=== PATIENT | male | born 1985 | race Native Hawaiian/Other Pacific Islander ===

== ENCOUNTER 2021-02-17 08:46 | Observation (INO) | payer SELFPAY ==
[2021-02-17 09:15] LABS: Bilirubin,Urine NEG (Negative); Blood,Urine NEG (Negative); Color,Urine Yellow (Yellow); Mucus,Urine FEW /HPF; RBC,Urine < 1.0 /HPF (0.0-6.0); Urobilinogen,Urine < 2.0 mg/dL (<2.0); WBC,Urine < 1.0 /HPF (0.0-6.0)
[2021-02-17 09:17] LABS: Basophils # (Auto) 0.1 K/mm3 (0.0-0.1); Basophils % (Auto) 0.4 % (0.0-1.8); Hematocrit 40.1 % (35.5-45.6); Hemoglobin 14.2 gm/dl (11.8-15.2); Lymphocytes # (Auto) 0.8 K/mm3 (1.2-5.4); Lymphocytes % (Auto) 4.4 % (13.4-35.0); Mean Corpuscular HGB Conc 35 % (32-34); Mean Corpuscular Volume 86 fl (84-94); Monocytes % (Auto) 5.7 % (0.0-7.3); Platelet Count 257 K/mm3 (140-440); Red Blood Count 4.65 M/mm3 (3.65-5.03); Red Cell Distribution Width 12.5 % (13.2-15.2)
[2021-02-17 09:40] LABS: Alanine Aminotransferase 16 units/L (7-56); Albumin 4.7 g/dL (3.9-5); BUN/Creatinine Ratio 19; Blood Urea Nitrogen 15 mg/dL (9-20); Calcium 9.1 mg/dL (8.4-10.2); Hemolysis Index 13
[2021-02-17] MEDS ORDERED: ONDANSETRON 4 MG/2 ML INJ IV ONE (11:15)
[2021-02-17] MEDS ORDERED: SODIUM CHLORIDE 0.9% 1000 ML 1,000 ML IV ONE (11:15)
[2021-02-17] MEDS ORDERED: MORPHINE 2 MG/1 ML INJ IV ONE (11:15)
[2021-02-17] MEDS ORDERED: PIPERACIL/TAZOBACTA 4.5/NS 100 4.5 GM/100 ML VIAL IV ONE (11:16)
--- NOTE | 2021-02-17 11:31 | Emergency Department Report ---
ED Abdominal Pain HPI - General Chief Complaint: Abdominal Pain Stated Complaint: ABD PAIN PUI?: No Time Seen by Provider: 02/17/21 10:49 Source: patient Mode of arrival: Ambulatory Limitations: Language Barrier - History of Present Illness Initial Comments: This is a 35-year-old male with no prior medical problem not taking any regular medications presenting with abdominal pain since last night. History obtained in Kazakh. The pain began gradually in the upper quadrants of the abdomen/periumbilical area bilaterally. It migrated to the right lower quadrant which is the point of maximum intensity now. Patient stated that he vomited yellow material x1. He states that he did not experience a fever. He denies any prior surgical procedures or hospitalizations. MD Complaint: abdominal pain -: Gradual, hour(s) Location: periumbilical, LUQ, RUQ Radiation: none Migration to: RLQ Severity: moderate Quality: aching Consistency: constant Improves With: nothing Worsens With: movement Associated Symptoms: denies other symptoms, vomiting (X1). denies: diarrhea, fever, chills, dysuria - Related Data Allergies Allergy/AdvReac Type Severity Reaction Status Date / Time No Known Allergies Allergy Unverified 02/17/21 08:54 ED Review of Systems ROS: Stated complaint: ABD PAIN Other details as noted in HPI Constitutional: denies: chills, fever Eyes: denies: eye pain, eye discharge, vision change ENT: denies: ear pain, throat pain Respiratory: denies: cough, shortness of breath, wheezing Cardiovascular: denies: chest pain, palpitations Endocrine: no symptoms reported Gastrointestinal: as per HPI, abdominal pain, nausea, vomiting. denies: diarrhea Genitourinary: denies: urgency, dysuria Musculoskeletal: denies: back pain, joint swelling, arthralgia Skin: denies: rash, lesions Neurological: denies: headache, weakness, paresthesias Psychiatric: denies: anxiety, depression Hematological/Lymphatic: denies: easy bleeding, easy bruising ED Past Medical Hx - Past Medical History Previous Medical History?: No - Surgical History Past Surgical History?: No - Social History Smoking Status: Never Smoker Substance Use Type: None ED Physical Exam - General Limitations: No Limitations General appearance: alert, in no apparent distress - Head Head exam: Present: atraumatic, normocephalic - Eye Eye exam: Present: normal appearance. Absent: scleral icterus - ENT ENT exam: Present: mucous membranes moist - Neck Neck exam: Present: normal inspection. Absent: tenderness, meningismus - Respiratory Respiratory exam: Present: normal lung sounds bilaterally. Absent: respiratory distress - Cardiovascular Cardiovascular Exam: Present: regular rate, normal rhythm. Absent: systolic murmur, diastolic murmur, rubs, gallop - GI/Abdominal GI/Abdominal exam: Present: soft, distended, tenderness (Mildly right lower quadrant), guarding (Voluntary), rebound (Localized right lower quadrant), diminished bowel sounds - Rectal Rectal exam: Present: deferred - Extremities Exam Extremities exam: Present: normal inspection - Back Exam Back exam: Present: normal inspection - Neurological Exam Neurological exam: Present: alert, oriented X3, CN II-XII intact. Absent: motor sensory deficit - Psychiatric Psychiatric exam: Present: normal affect, normal mood - Skin Skin exam: Present: warm, dry, intact, normal color. Absent: rash ED Course Vital Signs 02/17/21 02/17/21 08:55 12:08 Temperature 97.9 F Pulse Rate 97 H Respiratory 20 18 Rate Blood Pressure 128/70 O2 Sat by Pulse 98 Oximetry - Reevaluation(s) Reevaluation #1: Patient's presentation is quite consistent with acute appendicitis. He is treated with analgesia fluids and empiric antibiotics. CT of the abdomen has been ordered. Surgeon will be notified upon findings. 02/17/21 11:30 Reevaluation #2: Surgeon paged 02/17/21 13:40 Reevaluation #3: Spoke with . States admit to hospitalist. She will likely take the patient to the OR today. 02/17/21 13:50 02/17/21 13:50 Dr. Mosher paged ED Medical Decision Making - Lab Data Result diagrams: 02/17/21 09:08 02/17/21 09:08 Laboratory Results - last 24 hr 02/17/21 02/17/21 02/17/21 09:08 09:08 Unknown WBC 17.2 H RBC 4.65 Hgb 14.2 Hct 40.1 MCV 86 MCH 31 MCHC 35 H RDW 12.5 L Plt Count 257 Lymph % (Auto) 4.4 L [place] % (Auto) 5.7 Eos % (Auto) 0.0 Baso % (Auto) 0.4 Lymph # (Auto) 0.8 L [place] # (Auto) 1.0 H Eos # (Auto) 0.0 Baso # (Auto) 0.1 Seg Neutrophils % 89.5 H Seg Neutrophils # 15.4 H Sodium 137 Potassium 3.9 Chloride 102.7 Carbon Dioxide 23 Anion Gap 15 BUN 15 Creatinine 0.8 Estimated GFR > 60 BUN/Creatinine Ratio 19 Glucose 132 H Calcium 9.1 Total Bilirubin 0.80 AST 24 ALT 16 Alkaline Phosphatase 119 Total Protein 7.5 Albumin 4.7 Albumin/Globulin Ratio 1.7 Urine Color Yellow Urine Turbidity Clear Urine pH 9.0 H Ur Specific [place] 1.021 Urine Protein 30 mg/dl Urine Glucose (UA) Neg Urine Ketones 20 Urine Blood Neg Urine Nitrite Neg Urine Bilirubin Neg Urine Urobilinogen < 2.0 Ur Leukocyte Esterase Neg Urine WBC (Auto) < 1.0 Urine RBC (Auto) < 1.0 Urine Mucus Few - Radiology Data Radiology results: report reviewed, image reviewed PELVIS: The appendix is mildly dilated and thick-walled. The appendix measures approximately 1.2 cm transverse. There is a 1.3 cm calcified fecalith near the base of the appendix. There is mild inflammation in the periappendiceal fat. I see no evidence of abscess or obstruction. Critical care attestation.: If time is entered above; I have spent that time in minutes in the direct care of this critically ill patient, excluding procedure time. ED Disposition Clinical Impression: Acute appendicitis Qualifiers: Acute appendicitis type: with localized peritonitis Appendicitis gangrene presence: without gangrene Appendicitis perforation presence: without perforation Appendicitis abscess presence: unspecified whether abscess present Qualified Code(s): K35.30 - Acute appendicitis with localized peritonitis, without perforation or gangrene Disposition: OP ADMIT IP TO THIS HOSP Is pt being admited?: Yes Does the pt Need Aspirin: No Condition: Stable Referrals: PRIMARY CARE, [Primary Care Provider] - 3-5 Days Time of Disposition: 13:47
--- NOTE | 2021-02-17 13:27 | Cat Scan Report ---
CT OF THE ABDOMEN AND PELVIS WITH INTRAVENOUS CONTRAST INDICATION / CLINICAL INFORMATION: Abdominal pain, likely appendicitis. TECHNIQUE: The patient received 100 cc Omnipaque [address] scans at this location are performed using CT dose reduction for ALARA by means of automated exposure control. COMPARISON: None available. FINDINGS: ABDOMEN: The liver, spleen, gallbladder, bile ducts, pancreas, adrenal glands, kidneys and bowel demo nstrate no significant abnormality area no adenopathy is present. The lung bases are clear. PELVIS: The appendix is mildly dilated and thick-walled. The appendix measures approximately 1.2 cm t ransverse. There is a 1.3 cm calcified fecalith near the base of the appendix. There is mild inflamma tion in the periappendiceal fat. I see no evidence of abscess or obstruction. The distal ureters, urinary bladder, prostate gland and seminal vesicles are normal. There is no evid ence of diverticulitis. I do not identify a hernia. No acute osseous abnormality is present. IMPRESSION: Findings characteristic of acute appendicitis. There is an associated appendicolith witho ut evidence of abscess or other complication. Signer Name: Vinh Hatfield MD Signed: 02/17/2021 1:23 PM Workstation Name: [id number]
[2021-02-17] MEDS ORDERED: ALBUTEROL 2.5 MG/3 ML NEBU IH PRN (13:54)
[2021-02-17] MEDS ORDERED: ACETAMINOPHEN 325 MG TAB PO PRN (13:54)
[2021-02-17] MEDS ORDERED: ONDANSETRON 4 MG/2 ML INJ IV PRN (13:54)
--- NOTE | 2021-02-17 14:13 | History and Physical Report ---
History of Present Illness Chief complaint: My stomach hurts History of present illness: 35 YO Male with no PMH presents to ED for evaluation. Pt reports "my stomach hurts". Patient states that he has experienced pain in her abdomen over the past 1 day with persistently worsening symptoms over the same timeframe. Brown rodarte states that pain is 10/10, constant, diffuse, associated with nausea, associated with vomiting. Patient transported to [facility] via private vehicle for further care and evaluation of the aforementioned symptoms. The patient was seen and evaluated in the emergency department. All lab and imaging studies reviewed. Patient underwent CT scan of the abdomen and pelvis which revealed evidence of Appendicitis. Patient found to have systemic inflammatory response syndrome. Patient initiated on IV antibiotic therapy. Surgical team consulted in ED. Patient denies fever, chills, chest pain, palpitation, productive cough, skin rash, recent ill contacts, ingestion of food/water from new or different sources, brbpr, melena, or known exposure to COVID-19. No prior admission for review. All medication listed at time of admission has been reconciled. Past History Past Medical History: No medical history Past Surgical History: No surgical history, Other (reviewed) Social history: single Family history: diabetes, hypertension Medications and Allergies Allergies Allergy/AdvReac Type Severity Reaction Status Date / Time No Known Allergies Allergy Unverified 02/17/21 08:54 Active Meds: Active Medications Acetaminophen (Acetaminophen 325 Mg Tab) 650 mg PO Q4H PRN PRN Reason: Pain MILD(1-3)/Fever >100.5/EID Albuterol (Albuterol 2.5 Mg/3 Ml Nebu) 2.5 mg IH Q4HRT PRN PRN Reason: Shortness Of Breath Sodium Chloride (Nacl 0.9% 1000 Ml) 1,000 mls @ 125 mls/hr IV DIRECT CATHRYN Ondansetron HCl (Ondansetron 4 Mg/2 Ml Inj) 4 mg IV Q8H PRN PRN Reason: Nausea And Vomiting Sodium Chloride (Sodium Chloride 0.9% 10 Ml Flush Syringe) 10 ml IV BID CATHRYN Sodium Chloride (Sodium Chloride 0.9% 10 Ml Flush Syringe) 10 ml IV PRN PRN PRN Reason: LINE FLUSH Review of Systems Constitutional: no weight loss, no weight gain, no fever, no chills Ears, nose, mouth and throat: no ear pain, no ear discharge, no nasal congestion Cardiovascular: no chest pain, no orthopnea, no rapid/irregular heart beat, no edema Respiratory: no cough, no cough with sputum, no hemoptysis, no shortness of b reath Gastrointestinal: abdominal pain, nausea, vomiting, no diarrhea, no change in bowel habits, no hematemesis, no coffee ground emesis, no BRBPR, no melena, no hematochezia Rectal: no pain, no incontinence, no bleeding Musculoskeletal: no neck stiffness, no neck pain, no shooting arm pain, no arm numbness/tingling, no shooting leg pain Integumentary: no rash, no pruritis, no redness, no sores Neurological: no head injury, no transient paralysis, no parathesias, no num bness, no tingling, no syncope Psychiatric: no anxiety, no change in sleep habits, no insomnia, no hypersomnia, no change in appetite, no suicidal ideation Endocrine: no cold intolerance, no polyphagia, no excessive thirst, no polyuria, no excessive sweating, no flushing Hematologic/Lymphatic: no easy bruising, no easy bleeding, no lymphadenopathy Allergic/Immunologic: no allergic rhinitis Exam - Constitutional Vitals: Temp Pulse Resp BP Pulse Ox 97.9 F 97 H 18 128/70 98 02/17/21 08:55 02/17/21 08:55 02/17/21 12:08 02/17/21 08:55 02/17/21 08:55 General appearance: Present: mild distress - EENT Eyes: Present: PERRL ENT: hearing intact, clear oral mucosa - Neck Neck: Present: supple, normal ROM - Respiratory Respiratory effort: normal Respiratory: bilateral: CTA - Cardiovascular Heart Sounds: Present: S1 & S2. Absent: rub, click - Extremities Extremities: pulses symmetrical, No edema Peripheral Pulses: within normal limits - Abdominal General gastrointestinal: Present: soft, tender, non-distended, normal bowel sounds Localized gastrointestinal: tender: diffuse Male genitourinary: Present: normal - Integumentary Integumentary: Present: clear, warm, dry - Musculoskeletal Musculoskeletal: gait normal, strength equal bilaterally - Psychiatric Psychiatric: appropriate mood/affect, intact judgment & insight - Neurologic Neurologic: CNII-XII intact, moves all extremities Results - Labs CBC & Chem 7: 02/17/21 09:08 02/17/21 09:08 Labs: Abnormal lab results 02/17/21 02/17/21 02/17/21 Range/Units 09:08 09:08 Unknown WBC 17.2 H (4.5-11.0) K/mm3 MCHC 35 H (32-34) % RDW 12.5 L (13.2-15.2) % Lymph % (Auto) 4.4 L (13.4-35.0) % Lymph # (Auto) 0.8 L (1.2-5.4) K/mm3 [place] # (Auto) 1.0 H (0.0-0.8) K/mm3 Seg Neutrophils % 89.5 H (40.0-70.0) % Seg Neutrophils # 15.4 H (1.8-7.7) K/mm3 Glucose 132 H (75-100) mg/dL Urine pH 9.0 H (5.0-7.0) Assessment and Plan - Patient Problems (1) Acute appendicitis Current Visit: Yes Status: Acute Qualifiers: Acute appendicitis type: with localized peritonitis Appendicitis gangrene presence: without gangrene Appendicitis perforation presence: without perforation Appendicitis abscess presence: unspecified whether abscess present Qualified Code(s): K35.30 - Acute appendicitis with localized peritonitis, without perforation or gangrene Plan to address problem: CBC, CMP, CT scan abdomen and pelvis, IV antibiotic therapy, patient is pending surgical intervention, bowel rest, IV fluid resuscitation therapy, further care as per surgical team. (2) SIRS (systemic inflammatory response syndrome) Current Visit: Yes Status: Acute Plan to address problem: CBC, CMP, IV antibiotic therapy, IV fluid resuscitation therapy, supportive care. (3) DVT prophylaxis Current Visit: Yes Status: Acute Plan to address problem: SCD to bilateral lower extremities while in bed, patient is ambulatory
[2021-02-17] MEDS ORDERED: LIDOCAINE (1%) 10 MG/1 ML VIAL 20 ML MDV ONE (14:36)
[2021-02-17] MEDS ORDERED: BUPIVACAINE/PF (0.5%) 5 MG/1 ML 30 ML VIAL INFILTRATI ONE ×2 (14:36→16:02)
--- NOTE | 2021-02-17 15:13 | Consultation ---
History of Present Illness Consult date: 02/17/21 Reason for consult: abdominal pain Chief complaint: abdominal pain - History of present illness History of present illness: 35 yo M with no PMHx who presented to the emergency room with complaints of regulo re diffuse abdominal pain that started yesterday. He states the pain was all over and then migrated to the right lower quadrant today. The pain is stabbing in nature and has progressively gotten worse. He has never had pain like this before. The pain is now localized in the right lower quadrant and does not radiate. He states this was associated with nausea and vomiting. No fevers or chills. No sick contacts. Past History Past Medical History: No medical history Past Surgical History: No surgical history Social history: no significant social history Family history: no significant family history Medications and Allergies Allergies Allergy/AdvReac Type Severity Reaction Status Date / Time No Known Allergies Allergy Unverified 02/17/21 08:54 Active Meds: Active Medications Acetaminophen (Acetaminophen 325 Mg Tab) 650 mg PO Q4H PRN PRN Reason: Pain MILD(1-3)/Fever >100.5/EID Albuterol (Albuterol 2.5 Mg/3 Ml Nebu) 2.5 mg IH Q4HRT PRN PRN Reason: Shortness Of Breath Sodium Chloride (Nacl 0.9% 1000 Ml) 1,000 mls @ 125 mls/hr IV DIRECT CATHRYN Ondansetron HCl (Ondansetron 4 Mg/2 Ml Inj) 4 mg IV Q8H PRN PRN Reason: Nausea And Vomiting Sodium Chloride (Sodium Chloride 0.9% 10 Ml Flush Syringe) 10 ml IV BID CATHRYN Sodium Chloride (Sodium Chloride 0.9% 10 Ml Flush Syringe) 10 ml IV PRN PRN PRN Reason: LINE FLUSH Review of Systems All systems: negative (10 point ROS performed and negative except for that listed in HPI) Exam Vital Signs Temp Pulse Resp BP Pulse Ox 97.9 F 97 H 20 128/70 98 02/17/21 08:55 02/17/21 08:55 02/17/21 08:55 02/17/21 08:55 02/17/21 08:55 Narrative exam: Gen.: Awake, alert, oriented x3. No apparent distress ENT: Trachea midline. No lymphadenopathy. No scleral icterus or conjunctival pallor CV: S1, S2 present Respiratory: No audible wheezes Abdomen: Soft, nondistended, +TTP in RLQ. +rebound and guarding. No rigidity Extremities: No clubbing, cyanosis, edema Results - Labs 02/17/21 09:08 02/17/21 09:08 Abnormal lab results 02/17/21 02/17/21 02/17/21 Range/Units 09:08 09:08 Unknown WBC 17.2 H (4.5-11.0) K/mm3 MCHC 35 H (32-34) % RDW 12.5 L (13.2-15.2) % Lymph % (Auto) 4.4 L (13.4-35.0) % Lymph # (Auto) 0.8 L (1.2-5.4) K/mm3 [place] # (Auto) 1.0 H (0.0-0.8) K/mm3 Seg Neutrophils % 89.5 H (40.0-70.0) % Seg Neutrophils # 15.4 H (1.8-7.7) K/mm3 Glucose 132 H (75-100) mg/dL Urine pH 9.0 H (5.0-7.0) Diabetes panel 02/17/21 Range/Units 09:08 Sodium 137 (137-145) mmol/L Potassium 3.9 (3.6-5.0) mmol/L Chloride 102.7 (98-107) mmol/L Carbon Dioxide 23 (22-30) mmol/L BUN 15 (9-20) mg/dL Creatinine 0.8 (0.8-1.3) mg/dL Glucose 132 H (75-100) mg/dL Calcium 9.1 (8.4-10.2) mg/dL AST 24 (5-40) units/L ALT 16 (7-56) units/L Alkaline Phosphatase 119 (35-129) units/L Total Protein 7.5 (6.3-8.2) g/dL Albumin 4.7 (3.9-5) g/dL Calcium panel 02/17/21 Range/Units 09:08 Calcium 9.1 (8.4-10.2) mg/dL Albumin 4.7 (3.9-5) g/dL Pituitary panel 02/17/21 Range/Units 09:08 Sodium 137 (137-145) mmol/L Potassium 3.9 (3.6-5.0) mmol/L Chloride 102.7 (98-107) mmol/L Carbon Dioxide 23 (22-30) mmol/L BUN 15 (9-20) mg/dL Creatinine 0.8 (0.8-1.3) mg/dL Glucose 132 H (75-100) mg/dL Calcium 9.1 (8.4-10.2) mg/dL Adrenal panel 02/17/21 Range/Units 09:08 Sodium 137 (137-145) mmol/L Potassium 3.9 (3.6-5.0) mmol/L Chloride 102.7 (98-107) mmol/L Carbon Dioxide 23 (22-30) mmol/L BUN 15 (9-20) mg/dL Creatinine 0.8 (0.8-1.3) mg/dL Glucose 132 H (75-100) mg/dL Calcium 9.1 (8.4-10.2) mg/dL Total Bilirubin 0.80 (0.1-1.2) mg/dL AST 24 (5-40) units/L ALT 16 (7-56) units/L Alkaline Phosphatase 119 (35-129) units/L Total Protein 7.5 (6.3-8.2) g/dL Albumin 4.7 (3.9-5) g/dL - Imaging CT scan - abdomen: report reviewed, image reviewed CT scan - pelvis: report reviewed, image reviewed Assessment and Plan 35-year-old male with acute appendicitis Plan: 1. NPO 2. IVF 3. prn pain and nausea control 4. DVT ppx 5. Iv abx 6. Recommend OR for appendectomy. I discussed all risk benefits, alternatives to surgery with the patient questions were answered. Consent obtained. The entire encounter was performed using the [employer] interpreter. We will proceed to the OR today. Thank you for this consultation. Please call with any questions or concerns. Evaluation and treatment of this patient was during the time of the national and state emergency arising from COVID19 coronavirus pandemic. Treatment and procedures performed meet the current and available best practice and guidelines for patient during the COVID pandemic.
--- NOTE | 2021-02-17 15:20 | Anesthesia Consultation ---
Anesthesia Consult and Med Hx Date of service: 02/17/21 - Airway Anesthetic Teeth Evaluation: Crowns ROM Head & Neck: Adequate Mental/Hyoid Distance: Adequate Mallampati Class: Class II Intubation Access Assessment: Probably Good - Pulmonary Exam CTA: Yes - Pre-Operative Health Status ASA Pre-Surgery Classification: ASA1, Emergency Proposed Anesthetic Plan: General - Pulmonary Hx Smoking: No Hx Respiratory Symptoms: No Hx Pneumonia: No Hx Sleep Apnea: No - Cardiovascular System Hx Hypertension: No Hx Coronary Artery Disease: No - Central Nervous System Hx Neuromuscular Disorder: No Hx Seizures: No Hx Psychiatric Problems: No - Endocrine Hx Renal Disease: No Hx Liver Disease: No Hx Insulin Dependent Diabetes: No Hx Non-Insulin Dependent Diabetes: No Hx Thyroid Disease: No - Hematic Hx Anemia: No - Other Systems Hx Alcohol Use: No Hx Substance Use: No Hx Obesity: No
--- NOTE | 2021-02-17 15:21 | Anesthesia Day of Surgery ---
Anesthesia Day of Surgery - Day of Surgery Patient Examined: Yes Patient H&P Reviewed: Yes Patient is NPO: Yes Beta Blockers: No Cardiac Clearance: No Pulmonary Clearance: No Los's Test: N/A
[2021-02-17] MEDS ORDERED: LACTATED RINGERS 1,000 ML ONE ×2 (15:26→16:36)
[2021-02-17] MEDS ORDERED: LIDOCAINE MPF (2%) 20 MG/1 ML VIAL 5 ML ONE (15:32)
[2021-02-17] MEDS ORDERED: ONDANSETRON 4 MG/2 ML INJ ONE (15:32)
[2021-02-17] MEDS ORDERED: HYDROmorphone 1 MG/1 ML INJ ONE (15:32)
[2021-02-17] MEDS ORDERED: ROCURONIUM 50 MG/5 ML INJ IV ONE (15:32)
[2021-02-17] MEDS ORDERED: propofoL 200 MG/20 ML VIAL IV ONE (15:32)
[2021-02-17] MEDS ORDERED: LIDOCAINE (1%) 10 MG/1 ML VIAL 20 ML MDV INFILTRATI ONE (16:02)
[2021-02-17] MEDS ORDERED: WATER FOR IRRIG STERILE 1,500 ML BOTTLE IR ONE (16:03)
[2021-02-17] MEDS ORDERED: SUGAMMADEX SODIUM 200 MG/2 ML VIAL IV ONE (16:21)
--- NOTE | 2021-02-17 16:28 | Operative Report ---
Operative Report Operative Report: Date of operation: 02/17/21 Preoperative diagnosis: acute appendicitis Postoperative diagnosis: acute appendicitis Procedure performed: Laparoscopic appendectomy Surgeon: Steven Connolly DO Anesthesia: GETA Findings: Thickened, inflamed appendix without perforation EBL:<5cc Specimen: appendix Disposition/Condition: stable to PACU HPI and indication: 35yo F presented to ER with RLQ pain x24 hours. He was found to have an elevated WBC and acute appendicitis on CT scan. It was decided to take him to the OR for appendectomy. Using the [employer] attendant line, all risks, benefits, alternatives of surgery were discussed with the patient. All questions answered and consent signed. Procedure in detail: Patient was identified in the ER and taken back to the OR and placed on the OR table in supine position. After anesthesia was induced a peres catheter was steriley placed by the circulating nurse. A time out was performed. Local anesthetic was infilitrated into all skin incision sites. A supraumbilical incision was made and veress needle inserted. The positioning of the veress needle was confirmed using the saline drop test. The abdomen was then insufflated to 15mmHg without incident. The veress needle was withdrawn and a 5mm optiview trocar placed under direct visualization. The abdomen was inspected and there was no underlying injury to the abdominal structures identified. A 5mm suprapubic and a 12 mm LLQ trocar were placed under direct visualization. The appendix was visualized and noted to be inflamed and thickened. There was no evidence of perforation or free fluid. The base of the appendix was identified. The mesentery of the appendix was ligated using the harmonic scalpel. The base of the appendix was transected using an ethicon flex stapler 45mm white load. The appendix was placed into an endocatch bag and removed via the 12 mm port. This was passed off the table as specimen. The staple line and mesentery were then inspected and no bleeding visualized. The 12mm port fascia was closed with a single interrupted 0 vicryl stitch using the Sincere Pru[employer] device. The remaining ports were removed under direct visualization. All skin incisions were closed using 4-0 monocryl subcuticular stitches and skin glue. All skin incisions were once again infiltrated with l ocal anesthetic. At the end of the case, all sponge, instrument, sharp counts were correct x2. The patient was awoken from anesthesia, peres catheter removed, and taken to PACU in stable condition.
[2021-02-17] MEDS ORDERED: MORPHINE 2 MG/1 ML INJ IV PRN (16:32)
[2021-02-17] MEDS ORDERED: HYDROcodone/ACETAMINOPHEN 5-325 MG TAB PO PRN (16:32)
[2021-02-17] MEDS ORDERED: KETOROLAC 30 MG/1 ML INJ ONE (16:36)
--- NOTE | 2021-02-17 16:56 | Post Anesthesia Evaluation ---
- Post Anesthesia Evaluation Patient Participated: Yes Airway Patent: Yes Stable Respiratory Function: Yes Nausea/Vomiting: No Temp > 96.8F: Yes Pain Manageable: Yes Adequeate Hydration: Yes Anesthesia Complications: No Block Receding Appropriately: Not Applicable Patient on Ventilator: No
[2021-02-17] MEDS: SODIUM CHLORIDE 0.9% 1000 ML 1,000 ML IV SCH (17:10)
[2021-02-17] MEDS: PIPERACIL/TAZOBACTA 4.5/NS 100 4.5 GM/100 ML VIAL IV SCH (20:28)
[2021-02-18] MEDS: SODIUM CHLORIDE 0.9% 1000 ML 1,000 ML IV SCH (00:56)
[2021-02-18] MEDS: PIPERACIL/TAZOBACTA 4.5/NS 100 4.5 GM/100 ML VIAL IV SCH ×2 (03:15→11:30)
[2021-02-18 05:39] VITALS: BP 95/51
[2021-02-18 05:57] LABS: Hematocrit 36.6 % (35.5-45.6); Hemoglobin 12.4 gm/dl (11.8-15.2); Mean Corpuscular HGB Conc 34 % (32-34); Mean Corpuscular Volume 87 fl (84-94); Platelet Count 243 K/mm3 (140-440); Red Blood Count 4.21 M/mm3 (3.65-5.03); Red Cell Distribution Width 12.2 % (13.2-15.2)
[2021-02-18 06:11] LABS: BUN/Creatinine Ratio 15; Blood Urea Nitrogen 12 mg/dL (9-20); Calcium 8.3 mg/dL (8.4-10.2); Hemolysis Index 3
[2021-02-18 06:55] LABS: Total Cells Counted 100
[2021-02-18 06:56] LABS: Platelet Estimate Consistent w Auto; RBC Morphology Normal; Toxic Granulation 1+
--- NOTE | 2021-02-18 10:23 | Discharge Summary ---
Providers - Providers Date of Admission: 02/17/21 13:54 Date of discharge: 02/18/21 Attending physician: YVETTE Connolly Primary care physician: ADMISSIONS COUNSELOR Hospitalization Condition: Stable Hospital course: 35 YO Male with no PMH presents to ED for evaluation. Pt reports "my stomach hurts". Patient states that he has experienced pain in her abdomen over the past 1 day with persistently worsening symptoms over the same timeframe. Patient states that pain is 10/10, constant, diffuse, associated with nausea, associated with vomiting. Patient transported to [facility] via private vehicle for further care and evaluation of the aforementioned symptoms. The patient was seen and evaluated in the emergency department. All lab and imaging studies reviewed. Patient underwent CT scan of the abdomen and pelvis which revealed evidence of Appendicitis. Patient found to have systemic inflammatory response syndrome. Patient initiated on IV antibiotic therapy. Surgical team consulted in ED. Patient denies fever, chills, chest pain, palpitation, productive cough, skin rash, recent ill contacts, ingestion of food/water from new or different sources, brbpr, melena, or known exposure to COVID-19. No prior admission for review. All medication listed at time of admission has been reconciled. 02/18/2021 Patient is s/p appendectomy Patient able to tolerate clear liquids We will discharge the patient on clear liquids to advance diet as tolerated Will follow up with Dr. Connolly as outpatient in 1 week Assessment and Plan - Patient Problems (1) Acute appendicitis Current Visit: Yes Status: Acute Qualifiers: Acute appendicitis type: with localized peritonitis Appendicitis gangrene presence: without gangrene Appendicitis perforation presence: without perforation Appendicitis abscess presence: unspecified whether abscess present Qualified Code(s): K35.30 - Acute appendicitis with localized peritonitis, without perforation or gangrene Plan to address problem: Patient went in for emergent surgery and had appendectomy by Dr. Connolly and team. Postop patient doing well (2) SIRS (systemic inflammatory response syndrome) Current Visit: Yes Status: Acute Plan to address problem: Improved We will discharge now at 10:24 AM as the patient is tolerating clear liquids and patient is asymptomatic Patient will follow up with Dr. Connolly as outpatient Disposition: TO HOME OR SELFCARE Final Discharge Diagnosis (Prints w/discharge instructions): Acute appendicitis. Sirs - Discharge Diagnoses (1) Acute appendicitis Status: Acute Qualifiers: Acute appendicitis type: with localized peritonitis Appendicitis gangrene presence: without gangrene Appendicitis perforation presence: without perforation Appendicitis abscess presence: unspecified whether abscess present Qualified Code(s): K35.30 - Acute appendicitis with localized peritonitis, without perforation or gangrene (2) SIRS (systemic inflammatory response syndrome) Status: Acute Core Measure Documentation - Palliative Care Palliative Care/ Comfort Measures: Not Applicable - Core Measures Any of the following diagnoses?: none Exam - Constitutional Vitals: Temp Pulse Resp BP Pulse Ox 68.7 F L 62 16 95/51 93 02/18/21 05:18 02/18/21 05:18 02/18/21 05:18 02/18/21 05:18 02/18/21 10:00 General appearance: Present: no acute distress, well-nourished - EENT Eyes: Present: PERRL ENT: hearing intact, clear oral mucosa - Neck Neck: Present: supple, normal ROM - Respiratory Respiratory effort: normal Respiratory: bilateral: CTA - Cardiovascular Heart rate: 78 Rhythm: regular Heart Sounds: Present: S1 & S2. Absent: rub, click - Extremities Extremities: no ischemia, pulses intact, pulses symmetrical, No edema Peripheral Pulses: within normal limits - Abdominal General gastrointestinal: Present: soft, non-tender, non-distended, normal bowel sounds Male genitourinary: Present: normal - Integumentary Integumentary: Present: clear, warm, dry - Musculoskeletal Musculoskeletal: gait normal, strength equal bilaterally - Psychiatric Psychiatric: appropriate mood/affect, intact judgment & insight - Neurologic Neurologic: CNII-XII intact, moves all extremities - Allied Health Allied health notes reviewed: nursing, case management (We will did not want to expose adversely to the hypoxic) Plan Activity: no restrictions Diet: advance as tolerated Follow up with: PRIMARY CAREMD [Primary Care Provider] - 3-5 Days
--- NOTE | 2021-02-18 10:44 | Progress Note ---
Assessment and Plan 35-year-old male status post laparoscopic appendectomy, postop day 1 Plan: 1. reg diet 2. dc IVF, IV abx 3. prn PO pain control 4. IS/pulm toilet 5. Ok to dc home from surgery standpoint. Pt instructed to follow up in surgery clinic in 2weeks. All questions answered. Discussed with Dr. Badillo Thank you, please call with questions. Subjective Date of service: 02/18/21 Narrative: Patient seen and examined. This was done using the [employer] head line. Patient states he feels much better. His pain is minimal. No nausea or vomiting. He tolerated his diet this morning. He has been ambulating a little bit. He does complain of mild burning when he urinates. Objective Vital Signs - 12hr 02/17/21 02/18/21 02/18/21 23:00 05:18 10:00 Temperature 68.7 F L Pulse Rate 62 Respiratory 18 16 Rate Blood Pressure 95/51 O2 Sat by Pulse 96 93 93 Oximetry - General physical appearance Narrative Exam: Gen.: Awake, alert, oriented x3. No apparent distress ENT: Trachea midline. No lymphadenopathy. No scleral icterus or conjunctival pallor CV: S1, S2 present Respiratory: No audible wheezes Abdomen: Soft, nondistended, nontender. Incisions are clean, dry, intact. No rebound, rigidity, guarding Extremities: No clubbing, cyanosis, edema - Labs 02/18/21 05:10 02/18/21 05:10 Diabetes panel 02/18/21 Range/Units 05:10 Sodium 139 (137-145) mmol/L Potassium 4.0 (3.6-5.0) mmol/L Chloride 104.8 (98-107) mmol/L Carbon Dioxide 25 (22-30) mmol/L BUN 12 (9-20) mg/dL Creatinine 0.8 (0.8-1.3) mg/dL Glucose 140 H (75-100) mg/dL Calcium 8.3 L (8.4-10.2) mg/dL Calcium panel 02/18/21 Range/Units 05:10 Calcium 8.3 L (8.4-10.2) mg/dL Pituitary panel 02/18/21 Range/Units 05:10 Sodium 139 (137-145) mmol/L Potassium 4.0 (3.6-5.0) mmol/L Chloride 104.8 (98-107) mmol/L Carbon Dioxide 25 (22-30) mmol/L BUN 12 (9-20) mg/dL Creatinine 0.8 (0.8-1.3) mg/dL Glucose 140 H (75-100) mg/dL Calcium 8.3 L (8.4-10.2) mg/dL Adrenal panel 02/18/21 Range/Units 05:10 Sodium 139 (137-145) mmol/L Potassium 4.0 (3.6-5.0) mmol/L Chloride 104.8 (98-107) mmol/L Carbon Dioxide 25 (22-30) mmol/L BUN 12 (9-20) mg/dL Creatinine 0.8 (0.8-1.3) mg/dL Glucose 140 H (75-100) mg/dL Calcium 8.3 L (8.4-10.2) mg/dL
== END 2021-02-18 12:55 | disposition home or self-care (01) ==
LOC: ED 08:46 → 3A 13:54
PROVIDERS: ADMIT Internal Medicine; ATTEND Internal Medicine
DX: K35.30 Acute appendicitis with localized peritonitis, without perforation or gangrene (principal); R65.10 Systemic inflammatory response syndrome (SIRS) of non-infectious origin without acute organ dysfunction
CPT/HCPCS: 36415; 44970; 74177; 80048; 80053; 81001; 85025; 88304; 96365; 96366; 96375; 99285; G0378; J1170; J1885; J2270; J2405; J2543; J2704; J7030; J7120; Q9967; 85007

== ENCOUNTER 2022-05-23 14:55 | Emergency (ER) | payer SELFPAY ==
[2022-05-23] MEDS ORDERED: TETANUS,DIPH,PERTUSS(ACELL) VACCINE 0.5 ML SYRINGE IM ONE (16:04)
[2022-05-23] MEDS ORDERED: cephALEXin 500 MG CAP PO ONE (16:05)
[2022-05-23] MEDS ORDERED: HYDROcodone/ACETAMINOPHEN 5-325 MG TAB PO ONE (16:05)
--- NOTE | 2022-05-23 16:18 | Emergency Department Report ---
ED General Adult HPI - General Chief complaint: Wound/Laceration Stated complaint: CUT THUMB OFF Time Seen by Provider: 05/23/22 16:03 Source: patient Mode of arrival: Ambulatory Limitations: Language Barrier - History of Present Illness Initial comments: Patient 36-year-old male who presents for left posterior thumb laceration. States he cut it with a chainsaw. 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 Patient presented to urgent care states he received pain medicine and dressing was advised to report to ED for x-rays. Pain is described at 5/10 exacerbated by palpation and movement. Pain is relieved by nothing tried. Bleeding was controlled by direct pressure self applied on scene. Patient denies other injury Severity scale (0 -10): 8 - Related Data Previous Rx's Medication Instructions Recorded Last Taken Type HYDROcodone/APAP 5-325 [[place] 1 each PO Q6HR PRN #12 tablet 02/18/21 Unknown Rx 5/325] HYDROcodone/APAP 5-325 [[place] 1 each PO Q6HR PRN #12 tablet 05/23/22 Unknown Rx 5-325 mg TAB] cephALEXin [Keflex] 500 mg PO Q8HR 10 Days #30 cap 05/23/22 Unknown Rx Allergies Allergy/AdvReac Type Severity Reaction Status Date / Time No Known Allergies Allergy Unverified 02/17/21 08:54 ED Review of Systems ROS: Stated complaint: CUT THUMB OFF Other details as noted in HPI Constitutional: denies: chills, fever Eyes: denies: eye pain, eye discharge, vision change ENT: denies: ear pain, throat pain Respiratory: denies: cough, shortness of breath, wheezing Cardiovascular: denies: chest pain, palpitations Endocrine: no symptoms reported Gastrointestinal: denies: abdominal pain, nausea, diarrhea Genitourinary: denies: urgency, dysuria Musculoskeletal: other (Left dorsal and volar wrist on the left hand). denies: back pain, joint swelling, arthralgia Skin: denies: rash, lesions Neurological: denies: headache, weakness, paresthesias Psychiatric: denies: anxiety, depression Hematological/Lymphatic: denies: easy bleeding, easy bruising ED Past Medical Hx - Past Medical History Hx Hypertension: No Hx Congestive Heart Failure: No Hx Diabetes: No Hx Liver Disease: No Hx Renal Disease: No Hx Seizures: No Hx Asthma: No Hx COPD: No - Surgical History Hx Appendectomy: Yes - Social History Smoking Status: Never Smoker - Medications Home Medications: Home Medications Medication Instructions Recorded Confirmed Last Taken Type HYDROcodone/APAP 5-325 [[place] 1 each PO Q6HR PRN #12 tablet 02/18/21 Unknown Rx 5/325] HYDROcodone/APAP 5-325 [[place] 1 each PO Q6HR PRN #12 tablet 05/23/22 Unknown Rx 5-325 mg TAB] cephALEXin [Keflex] 500 mg PO Q8HR 10 Days #30 cap 05/23/22 Unknown Rx ED Physical Exam - General Limitations: Language Barrier General appearance: alert, in no apparent distress - Head Head exam: Present: normocephalic, normal inspection - Eye Eye exam: Present: normal appearance, PERRL, EOMI Pupils: Present: normal accommodation - ENT ENT exam: Present: mucous membranes moist - Neck Neck exam: Present: normal inspection, full ROM. Absent: tenderness - Respiratory Respiratory exam: Present: normal lung sounds bilaterally. Absent: respiratory distress, wheezes - Cardiovascular Cardiovascular Exam: Present: regular rate, normal rhythm, normal heart sounds. Absent: systolic murmur, diastolic murmur, rubs, gallop - GI/Abdominal GI/Abdominal exam: Present: soft, normal bowel sounds. Absent: distended, tenderness - Rectal Rectal exam: Present: deferred - Extremities Exam Extremities exam: Present: normal inspection, normal capillary refill - Expanded Upper Extremity Exam Left Hand Wrist exam: Present: tenderness, laceration (3 sonometer dorsal to volar pain with extension no nail involvement pain related simulated axial thumb young ding pulses +2 bilateral no active bleeding at this time), other (left thumb extension is restricted , CONFIGURATION ENGINEER <3 sec, distal pulses + 2, ). Absent: deformity, crepidus, dislocation, nail avulsion, subungual hematoma Neuro motor exam: Present: wrist extension intact, thumb opposition intact, thumb IP flexion intact, thumb adduction intact, fingers 2-5 abduction intact, other (left thumb extensor injury, skin care technician <3 , distal pulses +2, pain with axial loadign left thumb ) Neurosensory exam: Present: radial nerve intact Vascular: Present: normal capillary refill - Back Exam Back exam: Present: normal inspection, full ROM. Absent: paraspinal tenderness, vertebral tenderness - Neurological Exam Neurological exam: Present: alert, oriented X3, CN II-XII intact, normal gait, reflexes normal. Absent: motor sensory deficit - Expanded Neurological Exam Expanded Patient oriented to: Present: person, place, time Speech: Present: fluid speech Motor strength exam: RUE: 5, LUE: 5, RLE: 5, LLE: 5 DTR: bicep (R): 1+, bicep (L): 1+ Best Eye Response (Justen): (4) open spontaneously Best Motor Response (Justen): (6) obeys commands Best Verbal Response (Justen): (5) oriented Justen Total: 15 - Psychiatric Psychiatric exam: Present: normal affect - Skin Skin exam: Present: warm, dry, intact, normal color. Absent: rash ED Course Vital Signs 05/23/22 14:59 Temperature 98.5 F Pulse Rate 77 Respiratory 20 Rate Blood Pressure 118/76 [Right] O2 Sat by Pulse 98 Oximetry - Laceration /Wound Repair Left Dorsal Finger Wound Location: upper extremity (Left dorsal thumb laceration 3 cm minimal contamination.) Wound Length (cm): 3 Wound's Depth, Shape: into muscle, irregular Wound Explored: No foreign bodies noted no foreign bodies on exam Irrigated w/ Saline (ccs): 200 Betadine Prep?: Yes Anesthesia: 1% Lidocaine Volume Anesthetic (ccs): 3 (Digital block was achieved) Wound Debrided: No foreign bodies noted Wound Repaired With: sutures Suture Size/Type: 3:0, nylon Number of Sutures: 12 (Running) Layer Closure?: No Sterile Dressing Applied?: No (Sterile dressing applied) Progress: Left dorsal thumb laceration with tendon injury minimal muscle injury no nail damage. Site cleaned with Betadine solution, anesthesia with 1% lidocaine x3 cc anesthesia achieved via digital block, wound irrigated 200 cc sterile saline, wound manually explored with 6 and sterile forceps and irrigation solution no foreign bodies noted no foreign bodies noted on x-ray. Wound closed with 3-0 nylon x12 sutures edges well approximated bleeding is controlled sterile dressings applied. Velcro thumb spica applied distal pulses remain intact CONFIGURATION ENGINEER remains intact patient given discharge instructions including antibiotics and follow-up with hand surgery in 2 days. Patient verbalized agreement and understanding of same patient tolerated procedure with minimal distress. ED Medical Decision Making - Radiology Data Radiology results: report reviewed, image reviewed RIGHT HAND 3 VIEW(S) INDICATION / CLINICAL INFORMATION: thumb laceration COMPARISON: None available. FINDINGS: BONES / JOINT(S): Acute comminuted fracture of the thumb proximal phalanx. No definite intra- articular extension. No significant arthritis. SOFT TISSUES: Left thumb soft tissue laceration without retained foreign body. ADDITIONAL FINDINGS: None. IMPRESSION: 1. Acute comminuted fracture of the thumb proximal phalanx with overlying laceration. No foreign body. Signer Name: Areli Fountain MD Signed: 05/23/2022 4:25 PM Workstation Name: [id number] Transcribed By: BERNARDO Dictated By: ARELI FOUNTAIN MD Electronically Authenticated By: ARELI FOUNTAIN MD Signed Date/Time: 05/23/221624 DD/ 22 TD/TT: - Medical Decision Making xray hand : Acute comminuted fracture of the thumb proximal phalanx with overlying laceration. No foreign body. RX: Keflex, Hydrocodone, Tetanus, consulted ed attending: recommendation consult ortho hand surgery for tx consult, & follow up, Consulted orthopedic hand via [facility] phone #[phone] Dr. Ashley Garcia, recommendation close skin thumb spica follow-up with hand surgery in 2 to 3 days. Keflex, pain control, discussed same with patient patient verbalized agreement and understanding with treatment plan. Laceration repaired see procedure note all bleeding controlled, sterile dressings intact, Velcro thumb spica applied patient given discharge instructions including symptoms of infection, pain control, antibiotic therapy, need to follow-up with hand surgery in 2 days. He verbalized agreement and understanding with discharge plan. Patient DC'd in stable condition at this time. Critical care attestation.: If time is entered above; I have spent that time in minutes in the direct care of this critically ill patient, excluding procedure time. ED Disposition Clinical Impression: Open fracture of thumb Qualifiers: Encounter type: initial encounter Phalanx: proximal Fracture alignment: displaced Laterality: left Qualified Code(s): S62.512B - Displaced fracture of proximal phalanx of left thumb, initial encounter for open fracture Thumb laceration Qualifiers: Encounter type: initial encounter Damage to nail status: without damage Foreign body presence: without foreign body Laterality: left Qualified Code(s): S61.012A - Laceration without foreign body of left thumb without damage to nail, initial encounter Disposition: HOME / SELF CARE / HOMELESS Is pt being admited?: No Does the pt Need Aspirin: No Condition: Stable Instructions: Thumb Fracture, Finger Fracture, Adult, [id number], Cast or Splint Care, Adult Additional Instructions: Take medications as prescribed, follow-up with hand surgeon in 2 days. Return to emergency department should symptoms worsen or symptoms of infection develop.. Prescriptions: cephALEXin [Keflex] 500 mg PO Q8HR 10 Days #30 cap HYDROcodone/APAP 5-325 [[place] 5-325 mg TAB] 1 each PO Q6HR PRN #12 tablet PRN Reason: Pain Referrals: [facility] [Outside] - 2-3 Days Navjot Manrique [Other] - JENNIE (Call on wednesday for follow up appointment ) Forms: Work/School Release Form(ED) Time of Disposition: 18:12 Print Language: [place]OOK ISLANDER
--- NOTE | 2022-05-23 16:29 | XRay Report ---
RIGHT HAND 3 VIEW(S) INDICATION / CLINICAL INFORMATION: thumb laceration COMPARISON: None available. FINDINGS: BONES / JOINT(S): Acute comminuted fracture of the thumb proximal phalanx. No definite intra-articula r extension. No significant arthritis. SOFT TISSUES: Left thumb soft tissue laceration without retained foreign body. ADDITIONAL FINDINGS: None. IMPRESSION: 1. Acute comminuted fracture of the thumb proximal phalanx with overlying laceration. No foreign body . Signer Name: Edu Cano MD Signed: 05/23/2022 4:25 PM Workstation Name: [email or web address]
[2022-05-23] MEDS ORDERED: LIDOCAINE (1%) 10 MG/1 ML VIAL 20 ML MDV INFILTRATI ONE (17:21)
[2022-05-23 18:26] VITALS: BP 125/83
== END 2022-05-23 18:26 | disposition home or self-care (01) ==
LOC: ED 14:55
DX: S62.512B Displaced fracture of proximal phalanx of left thumb, initial encounter for open fracture (principal); Z79.899 Other long term (current) drug therapy; W29.3XXA Contact with powered garden and outdoor hand tools and machinery, initial encounter; Y93.89 Activity, other specified; Y92.89 Other specified places as the place of occurrence of the external cause; Y99.8 Other external cause status
CPT/HCPCS: 90471; 90715; 99283; 99284